=== PATIENT | female | born 1950 | race Caucasian/White ===

== ENCOUNTER 2018-01-19 12:01 | Emergency (ER) | payer MEDICARE, OTHER ==
[2018-01-19 12:39] VITALS: BP 154/69
--- NOTE | 2018-01-19 13:19 | UC ---
Skin Complaint HPI - HPI Summary HPI Summary: IN-ROOM NOTE: This patient is a 67 year old F with a PMHx of chronic venous insufficiency and petechial rash [place] [facility] [place] a chief complaint of red spots on her LE since one week ago. She flew in from [place] and, after getting off the plane, felt a bursting sensation that resulted in sores in her LE. The patient rates the pain 6/10 in severity. Patient reports no swelling in calf area. Feet are slightly more swollen in area of rash, dorsum. Patient denies difficulty breathing. MD NOTE: Vital signs table. Blood pressure 154/69. Pulse ox 99. Patient is being treated with amlodipine. She also has a history of diabetes. Visit history noncontributory. NURSES NOTE: Red spots lower legs since this morning, small open spots since flying in a a plane. Feels like legs are more swollen than usual, normally wears compression stockings. - History of Current Complaint Chief Complaint: UCSkin Time Seen by Provider: 01/19/18 13:09 Stated Complaint: BUSTED BLOOD VESSELS ON LEGS Hx Obtained From: Patient Onset/Duration: Sudden Onset, Lasting Weeks - Since 1 week ago, Still Present, Worse Since - 2 days ago when more red spots developed overnight Onset Severity: Moderate Current Severity: Moderate Pain Intensity: 6 Pain Scale Used: 0-10 Numeric Location: Other - Lower extremities Character: Pain, Redness Associated Signs & Symptoms: Negative: Difficulty Breathing - Allergy/Home Medications Allergies/Adverse Reactions: Allergies Allergy/AdvReac Type Severity Reaction Status Date / Time narcotics Allergy See Comment Uncoded 01/19/18 12:38 Home Medications: Home Medications Cyanocobalamin INJ * [Vitamin B12 INJ *] 1,000 mcg IM MONTHLY 01/19/18 [History Confirmed 01/19/18] Iron Ps Complex/B12/Folic Acid [Iferex 150 Forte Capsule] 1 each PO TID [History Confirmed 01/19/18] Omeprazole CAP* [Prilosec CAP* 20 MG] 20 mg PO DAILY 01/19/18 [History Confirmed 01/19/18] amLODIPine TAB* [Norvasc 5 mg TAB*] 5 mg PO DAILY 01/19/18 [History Confirmed ] metFORMIN* [Glucophage 500 MG TAB *] 500 mg PO BID 01/19/18 [History Confirmed 01/19/18] Review of Systems Respiratory: Shortness Of Breath - Denies Musculoskeletal: Other: - Red sores on her LE since one week ago and red spots on her LE since 2 days ago. Swelling in dorsum of feet, bilaterally. No calf tenderness, redness or swelling. All Other Systems Reviewed And Are Negative: Yes - Comments Additional Review of Systems Comments: POSITIVE: RED SORES STARTING 1 WEEK AGO AND RED SPOTS STARTING 2 DAYS AGO. SWELLING IN LOWER EXTREMITIES BILATERALLY. NEGATIVE: DIFFICULTY BREATHING PMH/Surg Hx/FS Hx/Imm Hx Cardiovascular History: Other - Vasculitis Other Cardiovascular History: vasculitis Respiratory History: Pneumonia - Surgical History Surgical History: None - Family History Known Family History: Positive: Hypertension Negative: Cardiac Disease - Social History Occupation: Retired Alcohol Use: None Substance Use Type: None Smoking Status (MU): Former Smoker Physical Exam - Summary Physical Exam Summary: Appearance: The patient is well-appearing, is in no pain distress, and is well- nourished. Eyes: Conjunctiva are clear. ENT: The hearing is grossly normal, the pharynx is normal, and the TMs are normal. There is no muffled or hoarse voice. Neck: The neck is supple and there is no lymphadenopathy. Respiratory: The chest is nontender. The lungs are clear, there are normal breath sounds, and there is no respiratory distress. Cardiovascular: Heart is regular rate and rhythm. There is no murmur. Abdomen: The abdomen is soft and nontender. There is no organomegaly. Bowel sounds: present Musculoskeletal: Strength is intact. The patient moves all extremities. EXAM OF LOWER EXTREMITIES: SHOWS SCATTERED PETECHIAE OVER THE DORSUM OF BOTH FEET AND A LARGER ULCERATING LIKE LESION APPROXIMATELY 4 CM ABOVE THE LATERAL AND MEDIAL MALLEOLUS ON THE RIGHT FOOT. ON THE LEFT FOOT THERE ARE TWO PURPURIC SKIN LESIONS SURROUNDING A DARKENED AREA THAT APPEAR TO LOOK LIKE HEALING ULCERS. THERE ARE ALSO SCATTERED PETECHIAE OVER THE DORSUM OF THE LEFT FOOT, AND A FEW CONFLUENT, NON-BLANCHING PURPURIC LESIONS ABOVE THE ANKLE. THERE IS NO EVIDENCE OF LYMPHANGITIS OR CELLULITIS. NEGATIVE HOMANS SIGN, BILATERALLY. SUMMARY: ON THE DORSUM OF BOTH FEET, THE PATIENT HAS NON-BLANCHING, PURPURIC SKIN LESION. EXAMINATION OF BOTH CALVES DOES NOT REVEAL REDNESS OR ASYMMETRY. THERE IS NO POINT TENDERNESS. Neurological: The patient is alert. Motor and sensory examination grossly intact. Psychological: The patient displays age appropriate behavior Skin: Negative for rashes. Triage Information Reviewed: Yes Vital Signs: Initial Vital Signs Temp 97.7 F 01/19/18 12:31 Pulse 96 01/19/18 12:31 Resp 16 01/19/18 12:31 BP 154/69 01/19/18 12:31 Pulse Ox 99 01/19/18 12:31 Vital Signs Reviewed: Yes Course/Dx - Course Course Of Treatment: 67 y/o female with history of chronic vasculitis and venous insufficiency reports appearance of petechiae over the dorsum of the feet over the past week. She has no complaints of calf tenderness or swelling that is different from previously She has had previous episodes of purpura. Her pulse ox is 99. She has no SOB. 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 There are two healing areas of ecchymosis on the left foot and one on the right foot that show no cellulitis but the integrity of the skin has been violated. Lesions are consistent with venous insufficiency. My dx is small vessel vasculitis exacerbation. The patient is traveling tomorrow by plane, and has been advised to use her support stockings, elevate her legs, and move frequently. She will use Bactroban to the open areas on her feet. She will follow up in 3 days with her physician in [place]. She knows to go to the ED for any problems breathing or for new leg pain or swelling. Hypertensive BP reading 154/69. Patient will recheck in 4 days. - Differential Diagnoses - Skin Complaint Differential Diagnoses: Contact Dermatitis - vs. vasculitis v. venous insufficiency with ulceration, Other - platelet abnormality vs. 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; 3 small ulcerations of left foot and right foot from venous insufficiency Discharge - Sign-Out/Discharge Documenting (check all that apply): Patient Departure - D/C All imaging exams completed and their final reports reviewed: No Studies - Discharge Plan Condition: Stable Disposition: HOME Prescriptions: Mupirocin 2% CREAM* [Bactroban 2% CREAM*] 1 applic TOPICAL BID #1 tube MDD 3 Patient Education Materials: Purpura (ED) Referrals: No Primary Care Phys,NOPCP [Primary Care Provider] - Additional Instructions: WE DISCUSSED: The rash on your feet the rash on your feet is consistent with your previous diagnosis of vasculitis. Here symptoms do not suggest that you're having a blood clot or a clot that is gone. Lungs. However, immobility during travel can create blood clots and if you have any shortness of breath or leg pain or swelling when you travel tomorrow, go to the emergency department. Follow-up as planned with your physician in 3 days. Use Bactroban on the 3 open areas of your feet and watch for any signs of skin infection. The little dots on the top of your feet should not be spreading. If your condition worsens go to the emergency department. - Billing Disposition and Condition Condition: STABLE Disposition: Home - Attestation Statements Document Initiated by Vishal: Yes Documenting Scribe: Luigi Solorio Provider For Whom Vishal is Documenting (Include Credential): Ascencion Reyes MD Scribe Attestation: Luigi Werner, scribed for Ascencion Reyes MD on 01/19/18 at 1353. Scribe Documentation Reviewed: Yes Provider Attestation: The documentation as recorded by the Luigi bennett accurately reflects the service I personally performed and the decisions made by me, Ascencion Reyes MD
== END 2018-01-19 13:56 | disposition home or self-care (01) ==
LOC: UCEAST 12:01
DX: D69.2 Other nonthrombocytopenic purpura (principal); L95.9 Vasculitis limited to the skin, unspecified; L97.529 Non-pressure chronic ulcer of other part of left foot with unspecified severity; I87.2 Venous insufficiency (chronic) (peripheral); Z87.891 Personal history of nicotine dependence
CPT/HCPCS: 99202; G0463